=== PATIENT | male | born 1970 | race Caucasian/White ===

== ENCOUNTER 2019-12-12 05:44 | Day surgery (SDC) | payer OTHER, SELFPAY ==
[~2019-12-12] VITALS: Ht 172.7 cm; Wt 77.1 kg
[2019-12-12] MEDS ORDERED: LIDOCAINE 2% 100 MG/5 ML UJET TP ONE (07:42)
[2019-12-12] MEDS ORDERED: fentaNYL citrate 0.05 MG/ML VIAL ONE (07:42)
[2019-12-12] MEDS ORDERED: fentaNYL citrate 0.05 MG/ML VIAL IVP ONE (08:40)
== END 2019-12-12 08:27 | disposition home or self-care (01) ==
LOC: MDS 05:44 → MFCC 05:46 → MDS 08:27
PROVIDERS: ATTEND Internal Medicine Gastroenterology
DX: Z12.11 Encounter for screening for malignant neoplasm of colon (principal); D12.5 Benign neoplasm of sigmoid colon; Z20.828 Contact with and (suspected) exposure to other viral communicable diseases
CPT/HCPCS: 45385; J3010; U0003